=== PATIENT | female | born 1985 | race Caucasian/White ===

== ENCOUNTER 2017-04-06 05:26 | Inpatient (IN) ==
--- NOTE | 2017-04-05 15:09 | HISTORY AND PHYSICAL ---
HISTORY OF PRESENT ILLNESS: The patient is a 31-year-old female, 3, para 1-0-1-1 who has an EDC of 04/09/2017. She has had previous section. She is admitted at this time for repeat section for delivery. She has had routine care without any significant issues during this . Her blood type is O positive. PAST MEDICAL HISTORY: section. MEDICATIONS: vitamins. ALLERGIES: None. PHYSICAL EXAMINATION: GENERAL: A well-developed female. HEENT: Benign. NECK: Supple. LUNGS: Clear. CARDIOVASCULAR: Regular rate and rhythm. ABDOMEN: Soft, nontender. EXTREMITIES: No cyanosis, clubbing or edema. ASSESSMENT AND PLAN: This is a 31 year old in with term intrauterine , previous section, admitted at this time for repeat section for delivery. cc: Tommie Andrade MD
[2017-04-06] MEDS ORDERED: KEFZOL 1 GM/D5W 1 GM/50 ML IVPB IV PRN (05:34)
[2017-04-06] MEDS ORDERED: SODIUM CHLORIDE 0.9% INJ ONE (05:41)
[2017-04-06] MEDS ORDERED: PEPCID IV ONE ×2 (05:41→06:15)
[2017-04-06] MEDS ORDERED: REGLAN IV ONE ×2 (05:42→06:15)
[2017-04-06] MEDS: LR 1,000 ML IV SCH ×2 (06:09→06:35)
[2017-04-06] MEDS ORDERED: BICITRA PO ONE (06:15)
[2017-04-06 06:31] LABS: MANUAL DIFF NEEDED? NO; URINE SOURCE VOIDED
[2017-04-06] MEDS ORDERED: DURAMORPH ONE (06:32)
[2017-04-06] MEDS ORDERED: EPHEDRINE ONE (06:33)
[2017-04-06] MEDS ORDERED: PITOCIN ONE (06:34)
[2017-04-06] MEDS ORDERED: ZOFRAN ONE (06:34)
[2017-04-06] MEDS ORDERED: NEO-SYNEPHRINE ONE (06:34)
[2017-04-06 06:37] LABS: BASO% 0.4 % (0.0-0.8); EOS% 2.7 % (0.0-10.0); HEMATOCRIT 35.4 % (37.0-47.0); HEMOGLOBIN 12.3 g/dL (12.0-16.0); IMM GRAN# 0.02 X1000 (0.0-0.04); IMM GRAN% 0.2 % (0.0-0.5); LYMPH% 41.8 % (20.5-51.1); MCHC 34.7 g/dL (33-37); MCV 89.2 FL (81-99); MONO# 0.93 X1000 (0.11-0.59); MONO% 8.4 % (1.7-9.3); MPV 10.1 FL (7.4-10.4); NEUT% 46.5 % (42.2-75.2); PLT 315 X1000 (130-400); RBC 3.97 XMIL (4.2-5.4)
[2017-04-06 06:44] LABS: BILIRUBIN URINE NEGATIVE (NEGATIVE); BLOOD URINE TRACE (NEGATIVE); CLARITY HAZY (CLEAR); COLOR YELLOW; GLUCOSE URINE NEGATIVE (NEGATIVE); LEUKOCYTES URINE 1+ (NEGATIVE); NITRITE URINE NEGATIVE (NEGATIVE); PROTEIN URINE TRACE mg/dL (NEGATIVE); SP GRAVITY URINE 1.025; UROBILINOGEN URINE NORMAL
[2017-04-06] MEDS ORDERED: LR 1,000 ML IV SCH (07:00)
[2017-04-06] MEDS ORDERED: DEMEROL IM PRN (07:33)
[2017-04-06] MEDS ORDERED: HYDROXYZINE IM PRN (07:33)
[2017-04-06] MEDS ORDERED: DEMEROL PO PRN ×2 (07:33)
[2017-04-06] MEDS ORDERED: AMBIEN PO PRN (07:33)
[2017-04-06] MEDS ORDERED: MYLICON PO PRN (07:33)
[2017-04-06] MEDS ORDERED: PITOCIN 20 UNITS/LR 20 UNITS/1,000 ML IV.SOLN IV ONE (07:33)
[2017-04-06] MEDS ORDERED: DULCOLAX PR PRN (07:33)
[2017-04-06] MEDS ORDERED: HYDROXYZINE PO PRN (07:33)
[2017-04-06] MEDS ORDERED: PHENERGAN IM PRN (07:33)
[2017-04-06] MEDS ORDERED: CYTOTEC PO PRN (07:33)
[2017-04-06] MEDS ORDERED: PITOCIN IM PRN (07:33)
[2017-04-06] MEDS ORDERED: M-M-R II VACCINE SUBQ ONE (07:33)
[2017-04-06] MEDS ORDERED: BOOSTRIX VACCINE IM ONE (07:33)
--- NOTE | 2017-04-06 08:27 | OPERATIVE NOTE ---
PROCEDURE DATE : 04/06/2017 SURGEON: Tommie Andrade MD NATIONAL EXPANSION RECRUITER: Vin Ragland MD PREOPERATIVE DIAGNOSES: 1. Term intrauterine . 2. Previous section. 3. Desires repeat. POSTOPERATIVE DIAGNOSES: 1. Term intrauterine . 2. Previous section. 3. Desires repeat. PROCEDURE: Repeat low transverse section. ANESTHESIA: Spinal. FINDINGS: The patient had a female infant born, weighed 7 pounds 15 ounces, Apgars were 9 and 10. DESCRIPTION OF OPERATION: The patient was taken to the operating room, given Ancef IV. She was prepped and draped in a sterile fashion. After spinal anesthesia was placed, a Stringer catheter was inserted in the bladder. Pump hose and stockings were placed. We made a Pfannenstiel skin incision over a previous incision site, sharply dissected down to fascia. The fascia was dissected off the rectus muscle. The peritoneum was entered, we dissected down to create the bladder flap. A low transverse incision was made. Clear fluid was noted upon entering the sac. The infant was easily delivered using fundal pressure. Cord blood was obtained. The placenta was removed. She was given IV Pitocin. The uterus was externalized and cleaned with a clean lap. The incision was closed with #1 chromic in a locking fashion. We put a [id number] on the left and right corners for hemostasis. The uterus was put back in its anatomic position. Irrigation done with good hemostasis noted throughout. The rectus muscle was closed with #0 chromic suture. Hemostasis was maintained with Bovie. The fascia was closed with #1 Vicryl. The skin was closed with a 4-0 Biosyn. Estimated blood loss was 400 mL. Mother and are doing well at this time. cc: Tommie Andrade MD
[2017-04-06] MEDS: PERCOCET-10 PO PRN (11:52)
[2017-04-06] MEDS: MYLICON PO SCH ×4 (11:56→20:10)
[2017-04-06] MEDS ORDERED: PITOCIN 20 UNITS/LR 20 UNITS/1,000 ML IV.SOLN IV SCH (12:30)
[2017-04-06] MEDS: TORADOL IV SCH ×3 (13:39→20:10)
[2017-04-06] MEDS: PITOCIN 20 UNITS/LR 20 UNITS/1,000 ML IV.SOLN IV SCH ×2 (17:31→17:33)
[2017-04-06] MEDS: PERCOCET-5 PO PRN (18:23)
[2017-04-06] MEDS: PERICOLACE PO SCH (20:10)
[2017-04-07] MEDS: PITOCIN 10 UNITS/LR 10 UNIT/1,000 ML IV.SOLN IV SCH ×2 (00:49→08:31)
[2017-04-07] MEDS: TORADOL IV SCH (00:49)
[2017-04-07 06:02] LABS: HEMATOCRIT 31.6 % (37.0-47.0); HEMOGLOBIN 10.6 g/dL (12.0-16.0); MCH 30.5 PG (27-31); MCHC 33.5 g/dL (33-37); MCV 91.1 FL (81-99); MPV 10.3 FL (7.4-10.4); RBC 3.47 XMIL (4.2-5.4)
[2017-04-07] MEDS: PERCOCET-10 PO PRN ×4 (06:06→20:30)
[2017-04-07] MEDS ORDERED: LR 1,000 ML IV SCH (07:33)
[2017-04-07] MEDS: MYLICON PO SCH ×4 (08:52→20:08)
[2017-04-07] MEDS: MOTRIN PO PRN ×2 (13:10→20:30)
[2017-04-07] MEDS ORDERED: SALINE LOCK IV FLUID XX ONE (13:12)
[2017-04-07] MEDS: PERICOLACE PO SCH (20:08)
[2017-04-08] MEDS: PERCOCET-5 PO PRN (04:02)
[2017-04-08] MEDS: MOTRIN PO PRN ×2 (04:02→11:40)
--- NOTE | 2017-04-08 07:05 | DISCHARGE SUMMARY ---
ADMISSION DATE: 04/06/2017 DISCHARGE DATE: 04/08/2017 ADMITTING DIAGNOSES: 1. Term . 2. Previous , requesting repeat . PRINCIPAL DIAGNOSES: 1. Term . 2. Previous , requesting repeat . PRINCIPAL PROCEDURE: Repeat . SUMMARY: Helen Parmar is a 31-year-old, 3, para 1-0-1-1, at term gestation. She has had an uncomplicated course. She previously had a section and was admitted to the hospital on 01/07/[address] Andrade for a repeat . Repeat low-transverse C- section was performed, delivering a female infant weighing 7 pounds and 15 ounces. Apgars were 9 at 1 minute and 10 at 5 minutes. There were no intraoperative complications. Following delivery, the patient has done well. She has remained afebrile. All vital signs are stable. She had an admission hemoglobin of 12.3 and hematocrit of 35.4 with discharge hemoglobin of 10.6 and hematocrit of 31.6. On the day of discharge, cardiac and pulmonary examinations were normal. Bowel and bladder function was normal. Incision was clean and dry. She was having scant vaginal bleeding. Ms. Parmar is being discharged today and will be seen back in the office in 1 week. Routine discharge instructions, activity limitations, and precautions were given. She will continue vitamins. She is given prescriptions for Percocet 10, #30 and Motrin 800 mg for postoperative pain. cc: MD Tommie Ingram MD
[2017-04-08] MEDS: MYLICON PO SCH (09:15)
[2017-04-08] MEDS: PERCOCET-10 PO PRN (09:15)
[2017-04-08 09:19] VITALS: BP 107/69
== END 2017-04-08 12:45 | disposition home or self-care (01) ==
LOC: P.LD 05:26 → P.WC 09:41
PROVIDERS: ADMIT Obstetrics & Gynecology; ATTEND Obstetrics & Gynecology